=== PATIENT | female | born 1950 | race African-American/Black ===

== ENCOUNTER 2022-02-04 13:56 | Emergency (ER) | payer OTHER ==
[~2022-02-04] VITALS: Ht 167.6 cm; Wt 90.7 kg
[2022-02-04] MEDS ORDERED: AMLODIPINE BESYL5 MG (14:44)
[2022-02-04] MEDS ORDERED: PULMICORT FLE180 MCG (14:44)
== END 2022-02-04 20:07 | disposition home or self-care (01) ==
LOC: ER 13:56
DX: S80.12XA Contusion of left lower leg, initial encounter (principal); S80.11XA Contusion of right lower leg, initial encounter; W18.39XA Other fall on same level, initial encounter; Y93.89 Activity, other specified; Y92.59 Other trade areas as the place of occurrence of the external cause; Y99.9 Unspecified external cause status; Z88.0 Allergy status to penicillin; Z88.8 Allergy status to other drugs, medicaments and biological substances; Z88.6 Allergy status to analgesic agent; Z91.041 Radiographic dye allergy status; I10 Essential (primary) hypertension